=== PATIENT | female | born 1950 | race Caucasian/White ===

== ENCOUNTER 2016-09-14 06:34 | Inpatient (IN) | payer OTHER ==
[~2016-09-14] VITALS: Ht 162.6 cm; Wt 69.7 kg
[~2016-09-14 06:34] MED LIST: ASPIRIN325 MG PO; ATORVASTATIN CA40 M1 PO; BROVANA15 MCG/2 M NEB; LISINOPRIL2.5 MG PO; METOPROLOL SUCC25 M1 PO
[2016-09-14 08:27] LABS: ALBUMIN 3.5 g/dL (3.4-5.0); ALKALINE PHOSPHATASE 78 U/L (46-116); ALT/SGPT 22 U/L (14-59); AST/SGOT 19 U/L (15-37); BILIRUBIN TOTAL 1.2 mg/dL (0.20-1.00); CALCIUM 9.5 mg/dL (8.5-10.1); CARBON DIOXIDE 30.7 mmol/L (21-32); CHLORIDE SERUM 102 mmol/L (98-107); CREATININE SERUM 0.8 mg/dL (0.6-1.0); GFR1 > 60 mL/min; GLUCOSE SERUM 110 mg/dL (74-106); POTASSIUM SERUM 3.3 mmol/L (3.5-5.1); SODIUM SERUM 141 mmol/L (136-145); TOTAL PROTEIN, SERUM 7.1 g/dL (6.4-8.2)
[2016-09-14 08:53] LABS: BASOPHIL % 0.5 % (0-2); PLATELET COUNT 232 x10^3mcL (130-400); RED CELL DISTRIBUTION WIDTH 13.8 % (11.5-14.5)
[2016-09-14] MEDS ORDERED: DALIRESP500 MC1 PO (09:08)
[2016-09-14] MEDS ORDERED: XOPENEX1.25 MG/3 NEB (09:08)
[2016-09-14] MEDS ORDERED: SYMBICORT1 AE2 INH (09:08)
[2016-09-14] MEDS ORDERED: XOLAIR150 MG SC (09:09)
[2016-09-14] MEDS ORDERED: LIPITOR40 MG PO (09:24)
[2016-09-14] MEDS ORDERED: ASPIRIN ADULT L81 M3 PO (09:26)
[2016-09-14 10:08] VITALS: BP 157/73
[2016-09-14 10:18] LABS: T3 TOTAL 1.16 ng/mL
[2016-09-14 10:31] LABS: MAGNESIUM 2.1 mg/dL (1.8-2.4); PHOSPHOROUS 4.1 mg/dL (2.5-4.9)
[2016-09-14 10:33] LABS: CHOLESTEROL/HDL RATIO 1.8
[2016-09-14 10:39] LABS: FREE T4 1.24 ng/dL (0.76-1.46); FREE THYROXINE INDEX 3.3 ug/dL (1.4-4.5)
[2016-09-14 13:04] LABS: microscopic required? NO
[2016-09-14 13:44] VITALS: BP 126/64
[2016-09-14 13:55] LABS: UA SPECIFIC GRAVITY <=1.005 (1.005-1.035); urine erythrocyte NEGATIVE (NEGATIVE)
[2016-09-14 17:17] VITALS: BP 134/75
[2016-09-14 21:49] VITALS: BP 111/47
[2016-09-15 04:40] VITALS: BP 165/84
[2016-09-15 06:18] LABS: BASOPHIL % 0.1 % (0-2); PLATELET COUNT 280 x10^3mcL (130-400); RED CELL DISTRIBUTION WIDTH 13.9 % (11.5-14.5)
[2016-09-15 06:30] LABS: CALCIUM 9.1 mg/dL (8.5-10.1); CARBON DIOXIDE 24.8 mmol/L (21-32); CHLORIDE SERUM 104 mmol/L (98-107); CREATININE SERUM 0.8 mg/dL (0.6-1.0); GFR1 > 60 mL/min; GLUCOSE SERUM 145 mg/dL (74-106); POTASSIUM SERUM 3.8 mmol/L (3.5-5.1); SODIUM SERUM 140 mmol/L (136-145)
[2016-09-15 06:52] LABS: ALKALINE PHOSPHATASE 76 U/L (46-116); ALT/SGPT 23 U/L (14-59); AST/SGOT 17 U/L (15-37); BILIRUBIN TOTAL 0.62 mg/dL (0.20-1.00)
[2016-09-15 06:56] LABS: ALBUMIN 3.2 g/dL (3.4-5.0)
[2016-09-15 10:00] VITALS: BP 156/74
[2016-09-15 14:36] VITALS: BP 122/61
[2016-09-15 18:07] VITALS: BP 124/69
[2016-09-15 22:38] VITALS: BP 152/72
[2016-09-16 06:04] VITALS: BP 155/75
[2016-09-16 06:37] LABS: CALCIUM 9.1 mg/dL (8.5-10.1); CHLORIDE SERUM 104 mmol/L (98-107); CREATININE SERUM 0.9 mg/dL (0.6-1.0); GFR1 > 60 mL/min; GLUCOSE SERUM 124 mg/dL (74-106); POTASSIUM SERUM 3.8 mmol/L (3.5-5.1); SODIUM SERUM 140 mmol/L (136-145)
[2016-09-16 06:53] LABS: PLATELET COUNT 259 x10^3mcL (130-400); RED CELL DISTRIBUTION WIDTH 14.2 % (11.5-14.5)
[2016-09-16 08:26] LABS: BAND NEUTROPHIL 1 % (0-10); BASOPHIL 0 % (0-2); MONOCYTE 2 % (0-7); SEGMENTED NEUTROPHILS 95 % (37-75)
[2016-09-16 08:27] LABS: rbc morphology (normal/abnorm) ABNORMAL (NORMAL)
[2016-09-16 08:31] LABS: PLATELET MORPHOLOGY PLATELETS NORMAL
[2016-09-16 09:51] VITALS: BP 151/71
[2016-09-16 13:37] VITALS: BP 146/77
[2016-09-16 17:47] VITALS: BP 135/76
[2016-09-16 21:52] VITALS: BP 136/72
[2016-09-17 05:40] VITALS: BP 121/56
[2016-09-17 06:55] LABS: CALCIUM 8.6 mg/dL (8.5-10.1); CARBON DIOXIDE 33.4 mmol/L (21-32); CHLORIDE SERUM 102 mmol/L (98-107); CREATININE SERUM 0.8 mg/dL (0.6-1.0); GFR1 > 60 mL/min; GLUCOSE SERUM 91 mg/dL (74-106); POTASSIUM SERUM 3.4 mmol/L (3.5-5.1); SODIUM SERUM 140 mmol/L (136-145)
[2016-09-17 07:15] LABS: BASOPHIL % 0.3 % (0-2); PLATELET COUNT 201 x10^3mcL (130-400); RED CELL DISTRIBUTION WIDTH 14.1 % (11.5-14.5)
[2016-09-17 09:42] VITALS: BP 98/57
[2016-09-17 13:47] VITALS: BP 93/55
[2016-09-17 17:10] VITALS: BP 113/70
[2016-09-17 21:52] VITALS: BP 101/82
[2016-09-18 06:08] VITALS: BP 114/60
[2016-09-18 07:17] LABS: PLATELET COUNT 191 x10^3mcL (130-400); RED CELL DISTRIBUTION WIDTH 13.7 % (11.5-14.5)
[2016-09-18 07:18] LABS: BASOPHIL % 0 % (0-2)
[2016-09-18 07:26] LABS: CALCIUM 8.4 mg/dL (8.5-10.1); CHLORIDE SERUM 102 mmol/L (98-107); CREATININE SERUM 0.8 mg/dL (0.6-1.0); GFR1 > 60 mL/min; GLUCOSE SERUM 97 mg/dL (74-106); POTASSIUM SERUM 3.7 mmol/L (3.5-5.1); SODIUM SERUM 140 mmol/L (136-145)
[2016-09-18 10:00] VITALS: BP 142/64
[2016-09-18 10:03] VITALS: Ht 162.6 cm; Wt 69.7 kg
[2016-09-18] MEDS ORDERED: CLINDAMYCIN HC300 MG PO (11:20)
[2016-09-18] MEDS ORDERED: LEVAQUIN750 MG PO (11:21)
[2016-09-18] MEDS ORDERED: LAC PO (11:27)
[2016-09-18] MEDS ORDERED: XOPENEX1.25 MG/3 NEB (11:28)
[2016-09-18 12:37] VITALS: BP 142/64
[2016-09-18 14:00] VITALS: BP 124/64
== END 2016-09-18 15:20 | disposition home or self-care (01) | DRG 177 ==
LOC: ED 06:34 → DU 08:43
PROVIDERS: Emergency Medicine; Family Medicine; ADMIT Family Medicine
DX: J69.0 Pneumonitis due to inhalation of food and vomit (principal); J96.00 Acute respiratory failure, unspecified whether with hypoxia or hypercapnia; J44.1 Chronic obstructive pulmonary disease with (acute) exacerbation; E87.6 Hypokalemia; R22.2 Localized swelling, mass and lump, trunk; R91.8 Other nonspecific abnormal finding of lung field; Z68.26 Body mass index [BMI] 26.0-26.9, adult; Z99.81 Dependence on supplemental oxygen; Z87.891 Personal history of nicotine dependence; Z85.110 Personal history of malignant carcinoid tumor of bronchus and lung
CPT/HCPCS: 36600; 83880; 84439; J1644; J1885; J1956; J2001; J2060; J2920; J2930; J3480; J3490; J7030; J7613; J7626; J7644; Q0092

== ENCOUNTER 2016-10-24 07:21 | Inpatient (IN) | payer OTHER ==
[~2016-10-24] VITALS: Ht 162.6 cm; Wt 66.2 kg
[~2016-10-24 07:21] MED LIST changes: +ASPIRIN ADULT L81 M3 PO; +CLINDAMYCIN HC300 MG PO; +DALIRESP500 MC1 PO; +LAC PO; +LEVAQUIN750 MG PO; +LIPITOR40 MG PO; +SYMBICORT1 AE2 INH; +XOLAIR150 MG SC; +XOPENEX1.25 MG/3 NEB
[2016-10-24 08:30] LABS: BASOPHIL % 0.4 % (0-2); PLATELET COUNT 324 x10^3mcL (130-400); RED CELL DISTRIBUTION WIDTH 13.9 % (11.5-14.5)
[2016-10-24 08:36] LABS: CALCIUM 9.1 mg/dL (8.5-10.1); CARBON DIOXIDE 30.2 mmol/L (21-32); CHLORIDE SERUM 100 mmol/L (98-107); CREATININE SERUM 0.9 mg/dL (0.6-1.0); GFR1 > 60 mL/min; GLUCOSE SERUM 102 mg/dL (74-106); POTASSIUM SERUM 3.8 mmol/L (3.5-5.1); SODIUM SERUM 136 mmol/L (136-145)
[2016-10-24 08:46] LABS: ALKALINE PHOSPHATASE 100 U/L (46-116); ALT/SGPT 50 U/L (14-59); AST/SGOT 44 U/L (15-37); BILIRUBIN TOTAL 0.7 mg/dL (0.20-1.00); MAGNESIUM 2.2 mg/dL (1.8-2.4); TOTAL PROTEIN, SERUM 7.1 g/dL (6.4-8.2)
[2016-10-24 08:52] LABS: CK-MB 0.6 ng/mL (0-3.6)
[2016-10-24 08:53] LABS: ALBUMIN 2.6 g/dL (3.4-5.0)
[2016-10-24] MEDS ORDERED: BROVANA15 MCG/2 M NEB (09:58)
[2016-10-24] MEDS ORDERED: NEXIUM40 MG PO (09:58)
[2016-10-24 10:05] LABS: microscopic required? NO
[2016-10-24 10:21] LABS: UA SPECIFIC GRAVITY <=1.005 (1.005-1.035); urine erythrocyte NEGATIVE (NEGATIVE)
[2016-10-24 11:39] LABS: PHOSPHOROUS 3.6 mg/dL (2.5-4.9)
[2016-10-24 11:45] LABS: T3 TOTAL 1.05 ng/mL
[2016-10-24 11:46] LABS: FREE T4 1.49 ng/dL (0.76-1.46); FREE THYROXINE INDEX 4.2 ug/dL (1.4-4.5); T4(THYROXINE) 11.4 ug/dL (4.7-13.3)
[2016-10-24 12:43] VITALS: BP 132/74
[2016-10-24 12:48] VITALS: BP 132/74
[2016-10-24 17:48] VITALS: BP 126/48
[2016-10-24 21:32] VITALS: BP 127/109
[2016-10-25 05:18] VITALS: BP 112/62
[2016-10-25 08:03] VITALS: BP 119/57
[2016-10-25 09:36] LABS: BASOPHIL % 0.2 % (0-2); PLATELET COUNT 239 x10^3mcL (130-400)
[2016-10-25 09:37] LABS: CALCIUM 8.2 mg/dL (8.5-10.1); CARBON DIOXIDE 29.2 mmol/L (21-32); CHLORIDE SERUM 103 mmol/L (98-107); CREATININE SERUM 0.8 mg/dL (0.6-1.0); GFR1 > 60 mL/min; GLUCOSE SERUM 120 mg/dL (74-106); PHOSPHOROUS 3.3 mg/dL (2.5-4.9); POTASSIUM SERUM 3.5 mmol/L (3.5-5.1); SODIUM SERUM 136 mmol/L (136-145)
[2016-10-25 13:14] VITALS: BP 125/57
[2016-10-25 17:20] VITALS: BP 126/62
[2016-10-25 21:18] VITALS: BP 133/61
[2016-10-26 06:11] LABS: BASOPHIL % 0.1 % (0-2); PLATELET COUNT 274 x10^3mcL (130-400); RED CELL DISTRIBUTION WIDTH 14.1 % (11.5-14.5)
[2016-10-26 06:33] VITALS: BP 126/62
[2016-10-26 09:47] VITALS: BP 146/76
[2016-10-26 17:07] VITALS: BP 110/62
[2016-10-26 22:19] VITALS: BP 152/69
[2016-10-27 05:10] VITALS: BP 151/77
[2016-10-27 09:42] VITALS: BP 144/65
[2016-10-27 11:05] LABS: PLATELET COUNT 349 x10^3mcL (130-400); RED CELL DISTRIBUTION WIDTH 14.1 % (11.5-14.5)
[2016-10-27 11:15] LABS: CALCIUM 8.5 mg/dL (8.5-10.1); CARBON DIOXIDE 27.7 mmol/L (21-32); CHLORIDE SERUM 106 mmol/L (98-107); CREATININE SERUM 0.8 mg/dL (0.6-1.0); GFR1 > 60 mL/min; GLUCOSE SERUM 122 mg/dL (74-106); POTASSIUM SERUM 4.3 mmol/L (3.5-5.1); SODIUM SERUM 146 mmol/L (136-145)
[2016-10-27 11:46] LABS: BAND NEUTROPHIL 0 % (0-10); BASOPHIL 0 % (0-2); MONOCYTE 1 % (0-7); SEGMENTED NEUTROPHILS 99 % (37-75)
[2016-10-27 11:48] LABS: PLATELET MORPHOLOGY PLATELETS NORMAL; rbc morphology (normal/abnorm) ABNORMAL (NORMAL)
[2016-10-27 17:15] VITALS: BP 137/72
[2016-10-27 20:00] VITALS: BP 133/73
[2016-10-27 21:19] VITALS: BP 134/57
[2016-10-28 06:05] VITALS: BP 149/71
[2016-10-28 10:05] VITALS: BP 150/66
[2016-10-28 10:53] LABS: PLATELET COUNT 372 x10^3mcL (130-400); RED CELL DISTRIBUTION WIDTH 13.9 % (11.5-14.5)
[2016-10-28 11:08] LABS: CALCIUM 8.4 mg/dL (8.5-10.1); CARBON DIOXIDE 29.6 mmol/L (21-32); CHLORIDE SERUM 102 mmol/L (98-107); CREATININE SERUM 0.7 mg/dL (0.6-1.0); GFR1 > 60 mL/min; GLUCOSE SERUM 91 mg/dL (74-106); POTASSIUM SERUM 3.4 mmol/L (3.5-5.1); SODIUM SERUM 139 mmol/L (136-145)
[2016-10-28 11:44] LABS: BAND NEUTROPHIL 1 % (0-10); BASOPHIL 0 % (0-2); MONOCYTE 6 % (0-7); SEGMENTED NEUTROPHILS 86 % (37-75)
[2016-10-28 11:46] LABS: PLATELET MORPHOLOGY LARGE PLATELET SEEN
[2016-10-28 11:47] LABS: rbc morphology (normal/abnorm) ABNORMAL (NORMAL)
[2016-10-28 16:50] VITALS: BP 93/53
[2016-10-28 21:43] VITALS: BP 119/69
[2016-10-29 06:02] VITALS: BP 144/71
[2016-10-29 07:19] LABS: PLATELET COUNT 353 x10^3mcL (130-400); RED CELL DISTRIBUTION WIDTH 14.3 % (11.5-14.5)
[2016-10-29 07:20] LABS: BASOPHIL % 0 % (0-2)
[2016-10-29 07:34] LABS: CALCIUM 8.3 mg/dL (8.5-10.1); CARBON DIOXIDE 28.2 mmol/L (21-32); CHLORIDE SERUM 103 mmol/L (98-107); CREATININE SERUM 0.7 mg/dL (0.6-1.0); GFR1 > 60 mL/min; GLUCOSE SERUM 87 mg/dL (74-106); MAGNESIUM 2.2 mg/dL (1.8-2.4); PHOSPHOROUS 3.1 mg/dL (2.5-4.9); POTASSIUM SERUM 3.6 mmol/L (3.5-5.1); SODIUM SERUM 139 mmol/L (136-145)
[2016-10-29 09:32] VITALS: BP 107/49
[2016-10-29] MEDS ORDERED: BAC PO (09:42)
[2016-10-29 14:00] VITALS: BP 139/71
[2016-10-29 17:28] VITALS: BP 151/64
[2016-10-29 21:30] VITALS: BP 114/51
[2016-10-30 05:45] VITALS: BP 130/74
[2016-10-30 07:06] LABS: PLATELET COUNT 331 x10^3mcL (130-400); RED CELL DISTRIBUTION WIDTH 14.4 % (11.5-14.5)
[2016-10-30 07:15] LABS: CARBON DIOXIDE 26.8 mmol/L (21-32); CHLORIDE SERUM 104 mmol/L (98-107); CREATININE SERUM 0.6 mg/dL (0.6-1.0); GFR1 > 60 mL/min; GLUCOSE SERUM 95 mg/dL (74-106); POTASSIUM SERUM 3.5 mmol/L (3.5-5.1); SODIUM SERUM 141 mmol/L (136-145)
[2016-10-30 08:12] LABS: BAND NEUTROPHIL 3 % (0-10); BASOPHIL 0 % (0-2); MONOCYTE 8 % (0-7); PLATELET MORPHOLOGY PLATELETS NORMAL; SEGMENTED NEUTROPHILS 85 % (37-75); rbc morphology (normal/abnorm) ABNORMAL (NORMAL)
[2016-10-30 10:03] VITALS: BP 101/48
[2016-10-30 13:10] VITALS: BP 101/48
== END 2016-10-30 15:50 | DRG 189 ==
LOC: ED 07:21 → DU 10:00 → MU 10:00 → DU 11:42 → MU 10-25 16:31
PROVIDERS: Emergency Medicine; Family Medicine; ADMIT Student in an Organized Health Care Education/Training Program
DX: J96.00 Acute respiratory failure, unspecified whether with hypoxia or hypercapnia (principal); E43 Unspecified severe protein-calorie malnutrition; J44.1 Chronic obstructive pulmonary disease with (acute) exacerbation; N39.0 Urinary tract infection, site not specified; B95.62 Methicillin resistant Staphylococcus aureus infection as the cause of diseases classified elsewhere; R91.8 Other nonspecific abnormal finding of lung field; R73.03 Prediabetes; I10 Essential (primary) hypertension; I08.1 Rheumatic disorders of both mitral and tricuspid valves; E78.5 Hyperlipidemia, unspecified; D64.9 Anemia, unspecified; Z68.25 Body mass index [BMI] 25.0-25.9, adult; Z85.118 Personal history of other malignant neoplasm of bronchus and lung; Z87.891 Personal history of nicotine dependence; Z79.82 Long term (current) use of aspirin; Z99.81 Dependence on supplemental oxygen; Z92.3 Personal history of irradiation
CPT/HCPCS: 36600; 83880; 84439; 97110-GP; 97116-GP; J1885; J1956; J2920; J2930; J3490; J7030; J7040; J7620; J7626; Q0092; Q9967